=== PATIENT | male | born 1935 | race Caucasian/White ===

== ENCOUNTER 2020-08-08 13:05 | Emergency (ER) | payer MEDICARE ==
[~2020-08-08] VITALS: Ht 170.2 cm; Wt 113.0 kg
[2020-08-08 13:07] VITALS: BP 153/75
[2020-08-08] MEDS ORDERED: LIDOCAINE-MPF 1%, 5ML ONE (13:25)
[2020-08-08] MEDS ORDERED: DIPH,PERTUSS(ACELL),TET VAC/PF 0.5 ML IM-VACC ONE ×2 (13:55→14:00)
[2020-08-08] MEDS ORDERED: LIDOCAINE-MPF 1%, 5ML INFIL ONE (14:00)
[2020-08-08] MEDS ORDERED: NEOSPORIN OINT. PKT 1 PACKET ONE (14:55)
== END 2020-08-08 15:07 | disposition home or self-care (01) ==
LOC: ED 13:53
DX: S01.21XA Laceration without foreign body of nose, initial encounter (principal); W01.0XXA Fall on same level from slipping, tripping and stumbling without subsequent striking against object, initial encounter; Y93.89 Activity, other specified; Y92.59 Other trade areas as the place of occurrence of the external cause; Y99.8 Other external cause status
CPT/HCPCS: 12051; 90471; 90715; 99284